=== PATIENT | male | born 1975 | race Two or more races ===

== ENCOUNTER 2020-03-26 07:00 | Outpatient (CLI) | payer OTHER | END 2020-03-26 15:49 | disposition home or self-care (01) | LOC: PPH VACUNA 07:00 | DX: Z23 Encounter for immunization (principal) ==

== ENCOUNTER → 2020-11-04 08:51 | Outpatient (CLI) | payer OTHER | END | disposition home or self-care (01) | LOC: LAB 08:51 | PROVIDERS: ATTEND Ophthalmology | DX: D68.8 Other specified coagulation defects (principal); H25.011 Cortical age-related cataract, right eye; Z98.41 Cataract extraction status, right eye ==

== ENCOUNTER 2021-04-06 08:00 | Outpatient (CLI) | payer OTHER | END 2021-04-06 08:30 | disposition home or self-care (01) | LOC: PPH VACUNA 08:00 | PROVIDERS: ATTEND Emergency Medicine Pediatric Emergency Medicine | DX: Z23 Encounter for immunization (principal) ==

== ENCOUNTER 2021-11-23 10:58 | Inpatient (IN) | payer OTHER ==
[~2021-11-23] VITALS: Ht 175.3 cm; Wt 81.6 kg
--- NOTE | 2021-11-23 11:34 | NUR ---
SE RECIBE PACIENTE ALERTA, DESORIENTADO EN TIEMPO, LUGAR , CON PENSAMIENTOS DESORGANIZADO, NO PUDO DECIR QUE SIENTE, EXPRESA PALABRAS SIN COORDINACION Y DIFERENTES TEMAS . SE ESTIMAN S/V PRESION ARTERIAL JUSTYNA , DEXTROS 600 MG/DL. SE DASH EKG Y SE MUESTRA A DRA MCCORD QUIEN ORDENA UBICAR PT EN AREA DE CHEST PAIN.
--- NOTE | 2021-11-23 13:48 | NUR ---
SE ORIENTA PTE SOBRE EL TRATAMIENTO ORDENADO POR LA DRA MCCORD PTE ALERTA EN PERSONA Y DESORIENTADO X2 SE CONECTA A MONITOR CARDICO Y OXIMETRIA DE [place] SE REALIZAN MUESTRAS DE LABORATORIO Y SE ADMINISTRAN MEDICAMENTO DARREN ORDENADO PTE SE MANTIENE EN OBSERVACION Y BAJO TRATAMIENTO POR CAMBIOS. EN ESPERA DEL DR BEATRICE HOLLIDAY
== END 2021-11-28 16:18 | disposition home or self-care (01) | DRG 637 ==
LOC: ER 10:58 → ICU-2 14:22 → MEDI 11-24 11:27
PROVIDERS: ADMIT Specialist; ATTEND Specialist
PROC: B020ZZZ Computerized Tomography (CT Scan) of Brain (ICD-10-PCS; principal; 2021-11-23)
PROC: BW40ZZZ Ultrasonography of Abdomen (ICD-10-PCS; 2021-11-23)
PROC: 4A12X4Z Monitoring of Cardiac Electrical Activity, External Approach (ICD-10-PCS; 2021-11-23)
PROC: 3E0F7SF Introduction of Other Gas into Respiratory Tract, Via Natural or Artificial Opening (ICD-10-PCS; 2021-11-23)
PROC: BW2FYZZ Computerized Tomography (CT Scan) of Neck using Other Contrast (ICD-10-PCS; 2021-11-25)
DX: E11.00 Type 2 diabetes mellitus with hyperosmolarity without nonketotic hyperglycemic-hyperosmolar coma (NKHHC) (principal); G93.41 Metabolic encephalopathy; N17.8 Other acute kidney failure; E87.1 Hypo-osmolality and hyponatremia; E86.0 Dehydration; I10 Essential (primary) hypertension; R22.1 Localized swelling, mass and lump, neck; E78.2 Mixed hyperlipidemia; K76.0 Fatty (change of) liver, not elsewhere classified; Z79.84 Long term (current) use of oral hypoglycemic drugs; Z20.822 Contact with and (suspected) exposure to COVID-19

== ENCOUNTER 2021-12-24 07:38 | Outpatient (CLI) | payer OTHER | END 2021-12-24 07:39 | disposition home or self-care (01) | LOC: LAB 07:38 | PROVIDERS: ATTEND Specialist | DX: E11.65 Type 2 diabetes mellitus with hyperglycemia (principal); E11.21 Type 2 diabetes mellitus with diabetic nephropathy; D64.9 Anemia, unspecified; R78.2 Finding of cocaine in blood ==

== ENCOUNTER 2022-02-11 08:10 | Outpatient (CLI) | payer OTHER | END 2022-02-11 08:16 | disposition home or self-care (01) | LOC: LAB 08:10 | PROVIDERS: ATTEND Specialist | DX: Z12.11 Encounter for screening for malignant neoplasm of colon (principal) ==

== ENCOUNTER 2022-03-29 08:00 | Outpatient (CLI) | payer OTHER | END 2022-03-29 08:05 | disposition home or self-care (01) | LOC: PPH VACUNA 08:00 | PROVIDERS: ATTEND Emergency Medicine Pediatric Emergency Medicine | DX: Z23 Encounter for immunization (principal) ==

== ENCOUNTER 2023-03-08 | Outpatient (CLI) | payer OTHER | END 2023-03-08 00:15 | disposition home or self-care (01) | LOC: PPH VACUNA | PROVIDERS: ATTEND Emergency Medicine Pediatric Emergency Medicine | DX: Z23 Encounter for immunization (principal) | CPT/HCPCS: 90686; G0008 ==

== ENCOUNTER 2024-04-11 12:00 | Outpatient (CLI) | payer OTHER | END 2024-04-11 12:15 | disposition home or self-care (01) | LOC: PPH VACUNA 12:00 | PROVIDERS: ATTEND Emergency Medicine Pediatric Emergency Medicine | DX: Z23 Encounter for immunization (principal) ==

== ENCOUNTER 2025-04-22 15:23 | Outpatient (CLI) | payer OTHER | END 2025-04-22 15:33 | disposition home or self-care (01) | LOC: PPH VACUNA 15:23 | PROVIDERS: ATTEND Emergency Medicine Pediatric Emergency Medicine | DX: Z23 Encounter for immunization (principal) ==